=== PATIENT | female | born 1955 | race Caucasian/White ===

== ENCOUNTER 2020-02-02 16:38 | Emergency (ER) | payer BC ==
[~2020-02-02] VITALS: Ht 162.6 cm; Wt 81.6 kg
[2020-02-02 16:38] VITALS: BP_SYST 122
--- NOTE | 2020-02-02 17:45 | NUR ---
Pt brought by partner, A&Ox4, pt presents to ER with R foot pain/ swelling, pt states she twisted foot while getting out the car, pedal pulses normal, will cont to monitor
--- NOTE | 2020-02-02 17:50 | NUR ---
Dr Hernandez assessing patient at triage room
--- NOTE | 2020-02-02 17:50 | NUR ---
Sameer lipscomb in ED - 02/02/[address] at [email or web address] Hernandez at bedside assessing patient
[2020-02-02] MEDS ORDERED: KETOROLAC TROMETHAMINE 30 MG VIAL IM ONE (18:30)
[2020-02-02 19:06] VITALS: BP_SYST 122
--- NOTE | 2020-02-02 19:06 | NUR ---
Patient given written and verbal discharge instructions and verbalizes understanding. ER MD discussed with patient the results and treatment provided. Patient in stable condition. ID arm band removed. Rx of Vicodin and Ibuprofen given. Patient educated on pain management and to follow up with PMD. Pain Scale 3/10 tolerable for patient . Opportunity for questions provided and answered. Medication side effect fact sheet provided.
== END 2020-02-02 19:06 | disposition home or self-care (01) ==
LOC: SED 16:38
DX: S92.354A Nondisplaced fracture of fifth metatarsal bone, right foot, initial encounter for closed fracture (principal); J45.909 Unspecified asthma, uncomplicated; Z90.49 Acquired absence of other specified parts of digestive tract; Z88.1 Allergy status to other antibiotic agents; Z88.6 Allergy status to analgesic agent; X50.1XXA Overexertion from prolonged static or awkward postures, initial encounter; Y93.89 Activity, other specified; Y92.89 Other specified places as the place of occurrence of the external cause; Y99.8 Other external cause status
CPT/HCPCS: 73630; 96372; 99283; J1885